=== PATIENT | male | born 1990 | race Caucasian/White ===

== ENCOUNTER 2017-10-28 12:10 | Inpatient (IN) | payer MEDICAID ==
[2017-10-28] MEDS ORDERED: Insulin Regular, Human 100 Units/ML 3 ML Vial IV ONE ×2 (13:09→13:45)
[2017-10-28] MEDS ORDERED: Sodium Chloride 0.9% 1,000 ML IV ONE ×3 (13:13→15:33)
[2017-10-28] MEDS: Sodium Chloride 0.9% 1,000 ML IV SCH ×2 (17:12→21:16)
--- NOTE | 2017-10-28 18:17 | PCM.HP ---
H&P History of Present Illness - General Date of Service: 10/28/17 Source of Information: Patient, Old Records History Limitations: Reports: No Limitations - History of Present Illness Initial Comments - Free Text/Narative: This is a 27-year-old male patient comes the ER with elevated blood sugar. A month ago he was in the hospital for severe alcohol abuse withdrawal and necrotizing pancreatitis and upper GI bleed. He was sent home on glipizide 5 mg a day hydrochlorothiazide 25 mg daily, Flexeril 10 mg a day, Coreg 25 mg twice a day, Norvasc 5 mg a day, calcium acetate . He was postictal and appointment coming up and had lab draw yesterday. His blood sugar was low and 59. Says a you days he started having a little blurred vision then yesterday he couldn't read on a [employer] box 6 feet away. He has polyphagia all the time but he denies polydipsia and polyuria. He has no nausea or vomiting. He does not check his blood sugar he was post to to see if he had diabetes in the future. Patient states he has not had any alcohol since he got out of the hospital. - Related Data Allergies/Adverse Reactions: Allergies Allergy/AdvReac Type Severity Reaction Status Date / Time No Known Allergies Allergy Verified 10/28/17 15:34 Home Medications: Home Meds Calcium Acetate [PhosLo] 667 mg PO TID 10/28/17 [History] Carvedilol 25 mg PO BID 10/28/17 [History] Cyclobenzaprine [Flexeril] 10 mg PO TID PRN 10/28/17 [History] Hydrochlorothiazide 25 mg PO DAILY 10/28/17 [History] Omeprazole Magnesium [Prilosec] 20 mg PO BID 10/28/17 [History] Sevelamer Carbonate [Renvela] 800 mg PO TID 10/28/17 [History] amLODIPine [Norvasc] 5 mg PO BID 10/28/17 [History] glipiZIDE [Glucotrol] 5 mg PO DAILY 10/28/17 [History] Past Medical History HEENT History: Reports: Other (See Below) Other HEENT History: states that he had a scar tissue damage at his let eye. Cardiovascular History: Reports: Other (See Below) Other Cardiovascular History: essential hypertension; circulatory shock Respiratory History: Reports: Other (See Below) Other Respiratory History: hx of acute respiratory failure. Gastrointestinal History: Reports: Other (See Below) Other Gastrointestinal History: abdominal compartment syndrome, acute upper and lower GI bleeding, necrotizing pancreatitis. Genitourinary History: Reports: Other (See Below) Other Genitourinary History: hx of acute kiddney injury. Musculoskeletal History: Reports: Other (See Below) Other Musculoskeletal History: Sciatica Psychiatric History: Reports: ADHD, Bipolar, Other (See Below) Other Psychiatric History: patient has hx of alcohol dependence, has bipolar I and II mixed and wit rapid cycling. Social & Family History - Family History Family Medical History: Noncontributory H&P Review of Systems - Review of Systems: Review Of Systems: See Below General: Reports: No Symptoms HEENT: Reports: No Symptoms Pulmonary: Reports: No Symptoms Cardiovascular: Reports: No Symptoms Gastrointestinal: Reports: No Symptoms Genitourinary: Reports: Other (polyuria otherwise denied) Skin: Reports: No Symptoms Psychiatric: Reports: No Symptoms Neurological: Reports: No Symptoms Hematologic/Lymphatic: Reports: No Symptoms Review of Systems Comment:: See history of present illness Exam - Exam Exam: See Below - Vital Signs Vital Signs: Last Vital Signs Temp 98.2 F 10/28/17 17:39 Pulse 102 H 10/28/17 17:39 Resp 22 H 10/28/17 17:39 BP 127/83 10/28/17 17:39 Pulse Ox 97 10/28/17 17:39 Weight: 172 lb 2.896 oz - Exam General: Alert, Oriented, Cooperative HEENT: PERRLA, Hearing Intact, Mucosa Moist & [place], Posterior Pharynx Clear Neck: Supple, Trachea Midline Lungs: Clear to Auscultation, Normal Respiratory Effort. No: Crackles, Rales, Rhonchi Cardiovascular: Regular Rate, Regular Rhythm. No: Tachycardia, Systolic Murmur GI/Abdominal Exam: Normal Bowel Sounds, Soft, Non-Tender, No Organomegaly, No Distention, No Abnormal Bruit, No Mass Extremities: Normal Inspection, Non-Tender, No Pedal Edema Skin: Warm, Dry, Intact Neurological: Normal Speech, Normal Tone Neuro Extensive - Mental Status: Alert, Oriented x3, Normal Mood/Affect, Normal Cognition, Memory Intact Neuro Extensive - Motor, Sensory, Reflexes: Normal Gait Psychiatric: Alert, Normal Affect, Normal Mood - Patient Data Lab Results Last 24 hrs: Laboratory Results - last 24 hr 10/28/17 10/28/17 10/28/17 Range/Units 13:40 13:40 15:00 WBC 5.6 (4.5-12.0) X10-3/uL RBC 3.93 L (4.30-5.75) x10(6)uL Hgb 11.3 L (11.5-15.5) g/dL Hct 33.7 (30.0-51.3) % MCV 85.9 (80-96) fL MCH 28.6 (27.7-33.6) pg MCHC 33.4 (32.2-35.4) g/dL RDW 14.2 (11.5-15.5) % Plt Count 241 (125-369) X10(3)uL MPV 10.4 (7.4-10.4) fL Neut % (Auto) 66.3 (46-82) % Lymph % (Auto) 22.3 (13-37) % [place] % (Auto) 7.2 (4-12) % Eos % (Auto) 3 (1.0-5.0) % Baso % (Auto) 1 (0-2) % Neut # (Auto) 3.7 (1.6-8.3) # Lymph # (Auto) 1.2 (0.6-5.0) # [place] # (Auto) 0.4 (0.0-1.3) # Eos # (Auto) 0.2 (0.0-0.8) # Baso # (Auto) 0.1 (0.0-0.2) # Sodium 118 L* 124 L (135-145) mmol/L Potassium 4.3 3.7 (3.5-5.3) mmol/L Chloride 83 L* 88 L* D (100-110) mmol/L Carbon Dioxide 27 26 (21-32) mmol/L BUN 20 H 19 H (7-18) mg/dL Creatinine 1.8 H 1.6 H (0.70-1.30) mg/dL Est Cr Clr Drug Dosing TNP TNP Estimated GFR (MDRD) 45 L 52 L (>60) BUN/Creatinine Ratio 11.1 11.9 (9-20) Glucose 1048 H* 802 H* D (80-116) mg/dL Calcium 9.1 9.0 (8.6-10.2) mg/dL Phosphorus 4.0 (2.6-4.6) mg/dL Magnesium 1.5 L (1.8-2.5) mg/dL Total Bilirubin 1.1 (0.1-1.3) mg/dL AST 17 (5-25) IU/L ALT 28 (12-36) U/L Alkaline Phosphatase 127 H (56-112) IU/L Total Protein 8.1 H (6.0-8.0) g/dL Albumin 3.6 (3.5-5.2) g/dL Globulin 4.5 g/dL Albumin/Globulin Ratio 0.8 Urine Color (YELLOW) Urine Appearance (CLEAR) Urine pH (5.0-6.5) Ur Specific [place] (1.010-1.025) Urine Protein (NEGATIVE) mg/dL Urine Glucose (UA) (NEGATIVE) mg/dL Urine Ketones (NEGATIVE) mg/dL Urine Occult Blood (NEGATIVE) Urine Nitrite (NEGATIVE) Urine Bilirubin (NEGATIVE) Urine Urobilinogen (NEGATIVE) mg/dL Ur Leukocyte Esterase (NEGATIVE) Urine RBC (0) Urine WBC (0) Ur Squamous Epith Cells (NS,R,O) Urine Bacteria (NS) Hyaline Casts (NS) Urine Opiates Screen (NEGATIVE) Ur Oxycodone Screen (NEGATIVE) Ur Propoxyphene Screen (NEGATIVE) Ur Barbituates Screen (NEGATIVE) Ur Tricyclics Screen (NEGATIVE) Ur Phencyclidine Scrn (NEGATIVE) Ur Amphetamine Screen (NEGATIVE) Urine MDMA Screen (NEGATIVE) U Benzodiazepines Scrn (NEGATIVE) U Cocaine Metab Screen (NEGATIVE) U Marijuana (THC) Screen (NEGATIVE) 10/28/17 10/28/17 10/28/17 Range/Units 15:29 15:29 16:18 WBC (4.5-12.0) X10-3/uL RBC (4.30-5.75) x10(6)uL Hgb (11.5-15.5) g/dL Hct (30.0-51.3) % MCV (80-96) fL MCH (27.7-33.6) pg MCHC (32.2-35.4) g/dL RDW (11.5-15.5) % Plt Count (125-369) X10(3)uL MPV (7.4-10.4) fL Neut % (Auto) (46-82) % Lymph % (Auto) (13-37) % [place] % (Auto) (4-12) % Eos % (Auto) (1.0-5.0) % Baso % (Auto) (0-2) % Neut # (Auto) (1.6-8.3) # Lymph # (Auto) (0.6-5.0) # [place] # (Auto) (0.0-1.3) # Eos # (Auto) (0.0-0.8) # Baso # (Auto) (0.0-0.2) # Sodium 129 L (135-145) mmol/L Potassium 3.5 (3.5-5.3) mmol/L Chloride 93 L D (100-110) mmol/L Carbon Dioxide 26 (21-32) mmol/L BUN 17 (7-18) mg/dL Creatinine 1.5 H (0.70-1.30) mg/dL Est Cr Clr Drug Dosing TNP Estimated GFR (MDRD) 56 L (>60) BUN/Creatinine Ratio 11.3 (9-20) Glucose 508 H* D (80-116) mg/dL Calcium 9.0 (8.6-10.2) mg/dL Phosphorus (2.6-4.6) mg/dL Magnesium (1.8-2.5) mg/dL Total Bilirubin (0.1-1.3) mg/dL AST (5-25) IU/L ALT (12-36) U/L Alkaline Phosphatase (56-112) IU/L Total Protein (6.0-8.0) g/dL Albumin (3.5-5.2) g/dL Globulin g/dL Albumin/Globulin Ratio Urine Color Yellow (YELLOW) Urine Appearance Clear (CLEAR) Urine pH 5.0 (5.0-6.5) Ur Specific [place] 1.005 L (1.010-1.025) Urine Protein Negative (NEGATIVE) mg/dL Urine Glucose (UA) >1000 H (NEGATIVE) mg/dL Urine Ketones Negative (NEGATIVE) mg/dL Urine Occult Blood Negative (NEGATIVE) Urine Nitrite Negative (NEGATIVE) Urine Bilirubin Negative (NEGATIVE) Urine Urobilinogen Normal (NEGATIVE) mg/dL Ur Leukocyte Esterase Negative (NEGATIVE) Urine RBC Not seen (0) Urine WBC 0-5 (0) Ur Squamous Epith Cells Few H (NS,R,O) Urine Bacteria Few H (NS) Hyaline Casts Few H (NS) Urine Opiates Screen Negative (NEGATIVE) Ur Oxycodone Screen Negative (NEGATIVE) Ur Propoxyphene Screen Negative (NEGATIVE) Ur Barbituates Screen Negative (NEGATIVE) Ur Tricyclics Screen Negative (NEGATIVE) Ur Phencyclidine Scrn Negative (NEGATIVE) Ur Amphetamine Screen Negative (NEGATIVE) Urine MDMA Screen Negative (NEGATIVE) U Benzodiazepines Scrn Negative (NEGATIVE) U Cocaine Metab Screen Negative (NEGATIVE) U Marijuana (THC) Screen Positive H (NEGATIVE) 10/28/17 Range/Units 17:20 WBC (4.5-12.0) X10-3/uL RBC (4.30-5.75) x10(6)uL Hgb (11.5-15.5) g/dL Hct (30.0-51.3) % MCV (80-96) fL MCH (27.7-33.6) pg MCHC (32.2-35.4) g/dL RDW (11.5-15.5) % Plt Count (125-369) X10(3)uL MPV (7.4-10.4) fL Neut % (Auto) (46-82) % Lymph % (Auto) (13-37) % [place] % (Auto) (4-12) % Eos % (Auto) (1.0-5.0) % Baso % (Auto) (0-2) % Neut # (Auto) (1.6-8.3) # Lymph # (Auto) (0.6-5.0) # [place] # (Auto) (0.0-1.3) # Eos # (Auto) (0.0-0.8) # Baso # (Auto) (0.0-0.2) # Sodium 132 L (135-145) mmol/L Potassium 3.4 L (3.5-5.3) mmol/L Chloride 94 L (100-110) mmol/L Carbon Dioxide 27 (21-32) mmol/L BUN 16 (7-18) mg/dL Creatinine 1.4 H (0.70-1.30) mg/dL Est Cr Clr Drug Dosing TNP Estimated GFR (MDRD) > 60 (>60) BUN/Creatinine Ratio 11.4 (9-20) Glucose 341 H D (80-116) mg/dL Calcium 9.5 (8.6-10.2) mg/dL Phosphorus (2.6-4.6) mg/dL Magnesium (1.8-2.5) mg/dL Total Bilirubin (0.1-1.3) mg/dL AST (5-25) IU/L ALT (12-36) U/L Alkaline Phosphatase (56-112) IU/L Total Protein (6.0-8.0) g/dL Albumin (3.5-5.2) g/dL Globulin g/dL Albumin/Globulin Ratio Urine Color (YELLOW) Urine Appearance (CLEAR) Urine pH (5.0-6.5) Ur Specific [place] (1.010-1.025) Urine Protein (NEGATIVE) mg/dL Urine Glucose (UA) (NEGATIVE) mg/dL Urine Ketones (NEGATIVE) mg/dL Urine Occult Blood (NEGATIVE) Urine Nitrite (NEGATIVE) Urine Bilirubin (NEGATIVE) Urine Urobilinogen (NEGATIVE) mg/dL Ur Leukocyte Esterase (NEGATIVE) Urine RBC (0) Urine WBC (0) Ur Squamous Epith Cells (NS,R,O) Urine Bacteria (NS) Hyaline Casts (NS) Urine Opiates Screen (NEGATIVE) Ur Oxycodone Screen (NEGATIVE) Ur Propoxyphene Screen (NEGATIVE) Ur Barbituates Screen (NEGATIVE) Ur Tricyclics Screen (NEGATIVE) Ur Phencyclidine Scrn (NEGATIVE) Ur Amphetamine Screen (NEGATIVE) Urine MDMA Screen (NEGATIVE) U Benzodiazepines Scrn (NEGATIVE) U Cocaine Metab Screen (NEGATIVE) U Marijuana (THC) Screen (NEGATIVE) Result Diagrams: 10/28/17 13:40 10/28/17 17:20 - Problem List (1) Diabetic ketoacidosis SNOMED Code(s): 932062368, 752611771 ICD Code: E13.10 - OTH DIABETES MELLITUS WITH KETOACIDOSIS WITHOUT COMA Status: Acute Current Visit: Yes Qualifiers: Diabetes mellitus complication detail: without coma Problem List Initiated/Reviewed/Updated: Yes Orders Last 24hrs: Active Orders 24 hr Category Date Time Status Diabetes Education [RC] Click to Edit Care 10/28/17 13:45 Active Diabetes Education [RC] Click to Edit Care 10/28/17 15:06 Active Vital Signs [RC] Q1H Care 10/28/17 13:09 Active Vital Signs [RC] Q1H Care 10/28/17 13:45 Active DRUG SCREEN, URINE ALERE [URCHEM] Urgent Lab 10/28/17 15:29 Ordered UA W/MICROSCOPIC [URIN] Urgent Lab 10/28/17 15:29 Ordered Insulin Regular, Human [HumuLIN R] 100 unit Med 10/28/17 13:45 Active Sodium Chloride 0.9% [Normal Saline] 99 ml IV TITRATE Sodium Chloride 0.9% [Normal Saline] 1,000 ml Med 10/28/17 17:00 Active IV ASDIRECTED Medication Orders Insulin Human Regular 100 unit (/ Sodium Chloride) 100 mls @ 7.81 mls/hr IV TITRATE JOÃO; Protocol Last Admin: 10/28/17 13:59 Dose: 0.1 units/kg/hr, 7.81 mls/hr Sodium Chloride (Normal Saline) 1,000 mls @ 250 mls/hr IV ASDIRECTED JOÃO Last Admin: 10/28/17 17:12 Dose: 250 mls/hr Assessment/Plan Comment:: 1. Admit to ICU for insulin IV protocol. 2. Frequent checks of potassium 3. When the sugars come down start a diabetic diet 4.In the a.m. consider diabetes education. 5. Up ad colette. 6. SCD
[2017-10-28] MEDS: Potassium Chloride 10% 20 MEQ/15 ML Soln 15 ML UD Cup PO SCH ×3 (20:32→21:30)
[2017-10-28] MEDS ORDERED: Cyclobenzaprine 10 MG Tab PO PRN (20:41)
[2017-10-28] MEDS ORDERED: amLODIPine 2.5 MG Tab PO SCH (21:00)
[2017-10-28] MEDS ORDERED: Calcium Acetate 667 MG Cap PO SCH (21:00)
[2017-10-28] MEDS ORDERED: Sevelamer Carbonate 800 MG Tab PO SCH (21:00)
[2017-10-28] MEDS ORDERED: amLODIPine 5 MG Tab ONE (21:11)
[2017-10-28] MEDS: Carvedilol 25 MG Tab PO SCH (21:14)
[2017-10-29] MEDS ORDERED: Insulin Detemir 100 Units/ML 3 ML Pen SUBCUT ONE (00:47)
[2017-10-29] MEDS ORDERED: Insulin Aspart 100 Units/ML 3 ML Pen SUBCUT ONE ×2 (01:00→11:17)
[2017-10-29] MEDS: Sodium Chloride 0.9% 1,000 ML IV SCH (07:19)
[2017-10-29] MEDS ORDERED: Pantoprazole 40 MG Tab.CR PO SCH (07:30)
[2017-10-29] MEDS: Sevelamer Carbonate 800 MG Tab PO SCH ×2 (08:53→13:08)
[2017-10-29] MEDS: Calcium Acetate 667 MG Cap PO SCH ×2 (08:53→13:08)
[2017-10-29] MEDS: Carvedilol 25 MG Tab PO SCH (08:54)
--- NOTE | 2017-10-29 08:54 | PCM.PN ---
- General Info Date of Service: 10/29/17 Subjective Update: Chacorta was admitted yesterday because of hyperglycemia and presumably DKA. Overnight to go insulin drip and fluids and he feels better this morning he denies chest pain shortness of breath fever nausea vomiting. Complains of fuzzy vision that has been going on for. 3-4 days. Last week he was admitted and discharged with acute kidney injury.Repeat labs showed glucose of >1100, necessitating his admission. - Review of Systems General: Reports: No Symptoms HEENT: Reports: No Symptoms Pulmonary: Reports: No Symptoms Cardiovascular: Reports: No Symptoms - Patient Data Vitals - Most Recent: Last Vital Signs Temp 97.9 F 10/29/17 07:22 Pulse 97 10/29/17 07:22 Resp 18 10/29/17 07:22 BP 136/84 10/29/17 07:22 Pulse Ox 100 10/29/17 07:22 Weight - Most Recent: 78.1 kg I&O - Last 24 Hours: Intake & Output 10/28/17 10/29/17 10/29/17 22:59 06:59 14:59 Intake Total 3786 1118 Output Total 800 2125 Balance 2986 -1007 Lab Results Last 24 Hours: Laboratory Results - last 24 hr 10/28/17 10/28/17 10/28/17 Range/Units 13:40 13:40 15:00 WBC 5.6 (4.5-12.0) X10-3/uL RBC 3.93 L (4.30-5.75) x10(6)uL Hgb 11.3 L (11.5-15.5) g/dL Hct 33.7 (30.0-51.3) % MCV 85.9 (80-96) fL MCH 28.6 (27.7-33.6) pg MCHC 33.4 (32.2-35.4) g/dL RDW 14.2 (11.5-15.5) % Plt Count 241 (125-369) X10(3)uL MPV 10.4 (7.4-10.4) fL Neut % (Auto) 66.3 (46-82) % Lymph % (Auto) 22.3 (13-37) % Anson % (Auto) 7.2 (4-12) % Eos % (Auto) 3 (1.0-5.0) % Baso % (Auto) 1 (0-2) % Neut # (Auto) 3.7 (1.6-8.3) # Lymph # (Auto) 1.2 (0.6-5.0) # Anson # (Auto) 0.4 (0.0-1.3) # Eos # (Auto) 0.2 (0.0-0.8) # Baso # (Auto) 0.1 (0.0-0.2) # Sodium 118 L* 124 L (135-145) mmol/L Potassium 4.3 3.7 (3.5-5.3) mmol/L Chloride 83 L* 88 L* D (100-110) mmol/L Carbon Dioxide 27 26 (21-32) mmol/L BUN 20 H 19 H (7-18) mg/dL Creatinine 1.8 H 1.6 H (0.70-1.30) mg/dL Est Cr Clr Drug Dosing TNP TNP Estimated GFR (MDRD) 45 L 52 L (>60) BUN/Creatinine Ratio 11.1 11.9 (9-20) Glucose 1048 H* 802 H* D (80-116) mg/dL POC Glucose (80-116) mg/dL Calcium 9.1 9.0 (8.6-10.2) mg/dL Phosphorus 4.0 (2.6-4.6) mg/dL Magnesium 1.5 L (1.8-2.5) mg/dL Total Bilirubin 1.1 (0.1-1.3) mg/dL AST 17 (5-25) IU/L ALT 28 (12-36) U/L Alkaline Phosphatase 127 H (56-112) IU/L Total Protein 8.1 H (6.0-8.0) g/dL Albumin 3.6 (3.5-5.2) g/dL Globulin 4.5 g/dL Albumin/Globulin Ratio 0.8 Urine Color (YELLOW) Urine Appearance (CLEAR) Urine pH (5.0-6.5) Ur Specific Sayre (1.010-1.025) Urine Protein (NEGATIVE) mg/dL Urine Glucose (UA) (NEGATIVE) mg/dL Urine Ketones (NEGATIVE) mg/dL Urine Occult Blood (NEGATIVE) Urine Nitrite (NEGATIVE) Urine Bilirubin (NEGATIVE) Urine Urobilinogen (NEGATIVE) mg/dL Ur Leukocyte Esterase (NEGATIVE) Urine RBC (0) Urine WBC (0) Ur Squamous Epith Cells (NS,R,O) Urine Bacteria (NS) Hyaline Casts (NS) Urine Opiates Screen (NEGATIVE) Ur Oxycodone Screen (NEGATIVE) Ur Propoxyphene Screen (NEGATIVE) Ur Barbituates Screen (NEGATIVE) Ur Tricyclics Screen (NEGATIVE) Ur Phencyclidine Scrn (NEGATIVE) Ur Amphetamine Screen (NEGATIVE) Urine MDMA Screen (NEGATIVE) U Benzodiazepines Scrn (NEGATIVE) U Cocaine Metab Screen (NEGATIVE) U Marijuana (THC) Screen (NEGATIVE) 10/28/17 10/28/17 10/28/17 Range/Units 15:29 15:29 16:18 WBC (4.5-12.0) X10-3/uL RBC (4.30-5.75) x10(6)uL Hgb (11.5-15.5) g/dL Hct (30.0-51.3) % MCV (80-96) fL MCH (27.7-33.6) pg MCHC (32.2-35.4) g/dL RDW (11.5-15.5) % Plt Count (125-369) X10(3)uL MPV (7.4-10.4) fL Neut % (Auto) (46-82) % Lymph % (Auto) (13-37) % Anson % (Auto) (4-12) % Eos % (Auto) (1.0-5.0) % Baso % (Auto) (0-2) % Neut # (Auto) (1.6-8.3) # Lymph # (Auto) (0.6-5.0) # Anson # (Auto) (0.0-1.3) # Eos # (Auto) (0.0-0.8) # Baso # (Auto) (0.0-0.2) # Sodium 129 L (135-145) mmol/L Potassium 3.5 (3.5-5.3) mmol/L Chloride 93 L D (100-110) mmol/L Carbon Dioxide 26 (21-32) mmol/L BUN 17 (7-18) mg/dL Creatinine 1.5 H (0.70-1.30) mg/dL Est Cr Clr Drug Dosing TNP Estimated GFR (MDRD) 56 L (>60) BUN/Creatinine Ratio 11.3 (9-20) Glucose 508 H* D (80-116) mg/dL POC Glucose (80-116) mg/dL Calcium 9.0 (8.6-10.2) mg/dL Phosphorus (2.6-4.6) mg/dL Magnesium (1.8-2.5) mg/dL Total Bilirubin (0.1-1.3) mg/dL AST (5-25) IU/L ALT (12-36) U/L Alkaline Phosphatase (56-112) IU/L Total Protein (6.0-8.0) g/dL Albumin (3.5-5.2) g/dL Globulin g/dL Albumin/Globulin Ratio Urine Color Yellow (YELLOW) Urine Appearance Clear (CLEAR) Urine pH 5.0 (5.0-6.5) Ur Specific [place]re 1.005 L (1.010-1.025) Urine Protein Negative (NEGATIVE) mg/dL Urine Glucose (UA) >1000 H (NEGATIVE) mg/dL Urine Ketones Negative (NEGATIVE) mg/dL Urine Occult Blood Negative (NEGATIVE) Urine Nitrite Negative (NEGATIVE) Urine Bilirubin Negative (NEGATIVE) Urine Urobilinogen Normal (NEGATIVE) mg/dL Ur Leukocyte Esterase Negative (NEGATIVE) Urine RBC Not seen (0) Urine WBC 0-5 (0) Ur Squamous Epith Cells Few H (NS,R,O) Urine Bacteria Few H (NS) Hyaline Casts Few H (NS) Urine Opiates Screen Negative (NEGATIVE) Ur Oxycodone Screen Negative (NEGATIVE) Ur Propoxyphene Screen Negative (NEGATIVE) Ur Barbituates Screen Negative (NEGATIVE) Ur Tricyclics Screen Negative (NEGATIVE) Ur Phencyclidine Scrn Negative (NEGATIVE) Ur Amphetamine Screen Negative (NEGATIVE) Urine MDMA Screen Negative (NEGATIVE) U Benzodiazepines Scrn Negative (NEGATIVE) U Cocaine Metab Screen Negative (NEGATIVE) U Marijuana (THC) Screen Positive H (NEGATIVE) 10/28/17 10/28/17 10/28/17 Range/Units 17:20 18:35 18:35 WBC (4.5-12.0) X10-3/uL RBC (4.30-5.75) x10(6)uL Hgb (11.5-15.5) g/dL Hct (30.0-51.3) % MCV (80-96) fL MCH (27.7-33.6) pg MCHC (32.2-35.4) g/dL RDW (11.5-15.5) % Plt Count (125-369) X10(3)uL MPV (7.4-10.4) fL Neut % (Auto) (46-82) % Lymph % (Auto) (13-37) % Anson % (Auto) (4-12) % Eos % (Auto) (1.0-5.0) % Baso % (Auto) (0-2) % Neut # (Auto) (1.6-8.3) # Lymph # (Auto) (0.6-5.0) # Anson # (Auto) (0.0-1.3) # Eos # (Auto) (0.0-0.8) # Baso # (Auto) (0.0-0.2) # Sodium 132 L 135 (135-145) mmol/L Potassium 3.4 L 3.0 L (3.5-5.3) mmol/L Chloride 94 L 98 L (100-110) mmol/L Carbon Dioxide 27 28 (21-32) mmol/L BUN 16 16 (7-18) mg/dL Creatinine 1.4 H 1.2 (0.70-1.30) mg/dL Est Cr Clr Drug Dosing TNP 101.24 Estimated GFR (MDRD) > 60 > 60 (>60) BUN/Creatinine Ratio 11.4 13.3 (9-20) Glucose 341 H D 157 H D (80-116) mg/dL POC Glucose (80-116) mg/dL Calcium 9.5 9.1 (8.6-10.2) mg/dL Phosphorus 3.5 (2.6-4.6) mg/dL Magnesium 1.4 L (1.8-2.5) mg/dL Total Bilirubin (0.1-1.3) mg/dL AST (5-25) IU/L ALT (12-36) U/L Alkaline Phosphatase (56-112) IU/L Total Protein (6.0-8.0) g/dL Albumin (3.5-5.2) g/dL Globulin g/dL Albumin/Globulin Ratio Urine Color (YELLOW) Urine Appearance (CLEAR) Urine pH (5.0-6.5) Ur Specific Sayre (1.010-1.025) Urine Protein (NEGATIVE) mg/dL Urine Glucose (UA) (NEGATIVE) mg/dL Urine Ketones (NEGATIVE) mg/dL Urine Occult Blood (NEGATIVE) Urine Nitrite (NEGATIVE) Urine Bilirubin (NEGATIVE) Urine Urobilinogen (NEGATIVE) mg/dL Ur Leukocyte Esterase (NEGATIVE) Urine RBC (0) Urine WBC (0) Ur Squamous Epith Cells (NS,R,O) Urine Bacteria (NS) Hyaline Casts (NS) Urine Opiates Screen (NEGATIVE) Ur Oxycodone Screen (NEGATIVE) Ur Propoxyphene Screen (NEGATIVE) Ur Barbituates Screen (NEGATIVE) Ur Tricyclics Screen (NEGATIVE) Ur Phencyclidine Scrn (NEGATIVE) Ur Amphetamine Screen (NEGATIVE) Urine MDMA Screen (NEGATIVE) U Benzodiazepines Scrn (NEGATIVE) U Cocaine Metab Screen (NEGATIVE) U Marijuana (THC) Screen (NEGATIVE) 10/29/17 10/29/17 10/29/17 Range/Units 00:08 02:13 03:16 WBC (4.5-12.0) X10-3/uL RBC (4.30-5.75) x10(6)uL Hgb (11.5-15.5) g/dL Hct (30.0-51.3) % MCV (80-96) fL MCH (27.7-33.6) pg MCHC (32.2-35.4) g/dL RDW (11.5-15.5) % Plt Count (125-369) X10(3)uL MPV (7.4-10.4) fL Neut % (Auto) (46-82) % Lymph % (Auto) (13-37) % Anson % (Auto) (4-12) % Eos % (Auto) (1.0-5.0) % Baso % (Auto) (0-2) % Neut # (Auto) (1.6-8.3) # Lymph # (Auto) (0.6-5.0) # Anson # (Auto) (0.0-1.3) # Eos # (Auto) (0.0-0.8) # Baso # (Auto) (0.0-0.2) # Sodium 133 L (135-145) mmol/L Potassium 4.7 D (3.5-5.3) mmol/L Chloride 99 L (100-110) mmol/L Carbon Dioxide 26 (21-32) mmol/L BUN 13 (7-18) mg/dL Creatinine 1.2 (0.70-1.30) mg/dL Est Cr Clr Drug Dosing 101.24 Estimated GFR (MDRD) > 60 (>60) BUN/Creatinine Ratio 10.8 (9-20) Glucose 413 H* D (80-116) mg/dL POC Glucose 376 H 305 H (80-116) mg/dL Calcium 9.0 (8.6-10.2) mg/dL Phosphorus (2.6-4.6) mg/dL Magnesium (1.8-2.5) mg/dL Total Bilirubin (0.1-1.3) mg/dL AST (5-25) IU/L ALT (12-36) U/L Alkaline Phosphatase (56-112) IU/L Total Protein (6.0-8.0) g/dL Albumin (3.5-5.2) g/dL Globulin g/dL Albumin/Globulin Ratio Urine Color (YELLOW) Urine Appearance (CLEAR) Urine pH (5.0-6.5) Ur Specific Sayre (1.010-1.025) Urine Protein (NEGATIVE) mg/dL Urine Glucose (UA) (NEGATIVE) mg/dL Urine Ketones (NEGATIVE) mg/dL Urine Occult Blood (NEGATIVE) Urine Nitrite (NEGATIVE) Urine Bilirubin (NEGATIVE) Urine Urobilinogen (NEGATIVE) mg/dL Ur Leukocyte Esterase (NEGATIVE) Urine RBC (0) Urine WBC (0) Ur Squamous Epith Cells (NS,R,O) Urine Bacteria (NS) Hyaline Casts (NS) Urine Opiates Screen (NEGATIVE) Ur Oxycodone Screen (NEGATIVE) Ur Propoxyphene Screen (NEGATIVE) Ur Barbituates Screen (NEGATIVE) Ur Tricyclics Screen (NEGATIVE) Ur Phencyclidine Scrn (NEGATIVE) Ur Amphetamine Screen (NEGATIVE) Urine MDMA Screen (NEGATIVE) U Benzodiazepines Scrn (NEGATIVE) U Cocaine Metab Screen (NEGATIVE) U Marijuana (THC) Screen (NEGATIVE) 10/29/17 Range/Units 06:15 WBC (4.5-12.0) X10-3/uL RBC (4.30-5.75) x10(6)uL Hgb (11.5-15.5) g/dL Hct (30.0-51.3) % MCV (80-96) fL MCH (27.7-33.6) pg MCHC (32.2-35.4) g/dL RDW (11.5-15.5) % Plt Count (125-369) X10(3)uL MPV (7.4-10.4) fL Neut % (Auto) (46-82) % Lymph % (Auto) (13-37) % Anson % (Auto) (4-12) % Eos % (Auto) (1.0-5.0) % Baso % (Auto) (0-2) % Neut # (Auto) (1.6-8.3) # Lymph # (Auto) (0.6-5.0) # Anson # (Auto) (0.0-1.3) # Eos # (Auto) (0.0-0.8) # Baso # (Auto) (0.0-0.2) # Sodium 137 (135-145) mmol/L Potassium 3.6 D (3.5-5.3) mmol/L Chloride 101 (100-110) mmol/L Carbon Dioxide 27 (21-32) mmol/L BUN 11 (7-18) mg/dL Creatinine 1.1 (0.70-1.30) mg/dL Est Cr Clr Drug Dosing 110.44 Estimated GFR (MDRD) > 60 (>60) BUN/Creatinine Ratio 10.0 (9-20) Glucose 250 H D (80-116) mg/dL POC Glucose (80-116) mg/dL Calcium 9.5 (8.6-10.2) mg/dL Phosphorus (2.6-4.6) mg/dL Magnesium (1.8-2.5) mg/dL Total Bilirubin (0.1-1.3) mg/dL AST (5-25) IU/L ALT (12-36) U/L Alkaline Phosphatase (56-112) IU/L Total Protein (6.0-8.0) g/dL Albumin (3.5-5.2) g/dL Globulin g/dL Albumin/Globulin Ratio Urine Color (YELLOW) Urine Appearance (CLEAR) Urine pH (5.0-6.5) Ur Specific Sayre (1.010-1.025) Urine Protein (NEGATIVE) mg/dL Urine Glucose (UA) (NEGATIVE) mg/dL Urine Ketones (NEGATIVE) mg/dL Urine Occult Blood (NEGATIVE) Urine Nitrite (NEGATIVE) Urine Bilirubin (NEGATIVE) Urine Urobilinogen (NEGATIVE) mg/dL Ur Leukocyte Esterase (NEGATIVE) Urine RBC (0) Urine WBC (0) Ur Squamous Epith Cells (NS,R,O) Urine Bacteria (NS) Hyaline Casts (NS) Urine Opiates Screen (NEGATIVE) Ur Oxycodone Screen (NEGATIVE) Ur Propoxyphene Screen (NEGATIVE) Ur Barbituates Screen (NEGATIVE) Ur Tricyclics Screen (NEGATIVE) Ur Phencyclidine Scrn (NEGATIVE) Ur Amphetamine Screen (NEGATIVE) Urine MDMA Screen (NEGATIVE) U Benzodiazepines Scrn (NEGATIVE) U Cocaine Metab Screen (NEGATIVE) U Marijuana (THC) Screen (NEGATIVE) Med Orders - Current: Current Medications Amlodipine Besylate (Norvasc) 5 mg PO BID [facility] Calcium Acetate (Phoslo) 667 mg PO TIDMEALS [facility] Carvedilol (Coreg) 25 mg PO BID [facility] Last Admin: 10/28/17 21:14 Dose: 25 mg Cyclobenzaprine HCl (Flexeril) 10 mg PO TID PRN PRN Reason: Muscle Spasm Glipizide (Glucotrol) 5 mg PO DAILY [facility] Last Admin: 10/29/17 08:12 Dose: 5 mg Hydrochlorothiazide (Hydrochlorothiazide) 25 mg PO DAILY [facility] Sodium Chloride (Normal Saline) 1,000 mls @ 100 mls/hr IV ASDIRECTED [facility] Last Admin: 10/29/17 07:19 Dose: 250 mls/hr Pantoprazole Sodium (Protonix) 40 mg PO BIDAC [facility] Last Admin: 10/29/17 08:13 Dose: 40 mg Sevelamer Carbonate (Renvela) 800 mg PO TIDMEALS [facility] Discontinued Medications Amlodipine Besylate (Norvasc) 5 mg PO BID [facility] Last Admin: 10/28/17 21:25 Dose: 5 mg Amlodipine Besylate (Norvasc) Confirm Administered Dose 5 mg .ROUTE .STK-MED ONE Stop: 10/28/17 21:12 Last Admin: 10/28/17 21:17 Dose: 5 mg Calcium Acetate (Phoslo) 667 mg PO TID [facility] Last Admin: 10/28/17 21:34 Dose: 667 mg Sodium Chloride (Normal Saline) 1,000 mls @ 999 mls/hr IV .BOLUS ONE Stop: 10/28/17 14:13 Last Admin: 10/28/17 13:25 Dose: 999 mls/hr Insulin Human Regular 100 unit (/ Sodium Chloride) 100 mls @ 7.81 mls/hr IV TITRATE JOÃO; Protocol Last Titration: 10/28/17 18:19 Dose: 0.07 units/kg/hr, 5.8 mls/hr Sodium Chloride (Normal Saline) 1,000 mls @ 999 mls/hr IV .BOLUS ONE Stop: 10/28/17 16:04 Last Admin: 10/28/17 14:26 Dose: 999 mls/hr Sodium Chloride (Normal Saline) 1,000 mls @ 999 mls/hr IV .BOLUS ONE Stop: 10/28/17 16:33 Last Admin: 10/28/17 15:27 Dose: 999 mls/hr Insulin Aspart (Novolog) 10 unit SUBCUT ONETIME ONE Stop: 10/29/17 01:01 Last Admin: 10/29/17 01:07 Dose: 10 units Insulin Detemir (Levemir) 40 unit SUBCUT ONETIME ONE Stop: 10/29/17 00:48 Last Admin: 10/29/17 01:05 Dose: 40 units Insulin Human Regular (Humulin R) 7.8 unit IV ONETIME ONE Stop: 10/28/17 13:46 Last Admin: 10/28/17 13:57 Dose: 7.8 units Potassium Chloride (Potassium Chloride Solution) 40 meq PO Q30M JOÃO Stop: 10/28/17 21:16 Last Admin: 10/28/17 21:30 Dose: 40 meq Sevelamer Carbonate (Renvela) 800 mg PO TID JOÃO Last Admin: 10/28/17 21:34 Dose: 800 mg - Exam General: Alert, Oriented, Cooperative, No Acute Distress HEENT: Pupils Equal, Pupils Reactive, EOMI, Mucous Membr. Moist/[place] Neck: Supple Lungs: Clear to Auscultation, Normal Respiratory Effort Cardiovascular: Regular Rate, Regular Rhythm Psy/Mental Status: Alert, Normal Affect, Normal Mood - Problem List & Annotations (1) Hyperglycemic crisis in diabetes mellitus SNOMED Code(s): 131643857, 683980371 Code(s): E11.65 - TYPE 2 DIABETES MELLITUS WITH HYPERGLYCEMIA Status: Acute Current Visit: Yes (2) Hypomagnesemia SNOMED Code(s): 857081635 Code(s): E83.42 - HYPOMAGNESEMIA Status: Acute Current Visit: Yes (3) H/O alcohol abuse SNOMED Code(s): 142759623 Code(s): Z87.898 - PERSONAL HISTORY OF OTHER SPECIFIED CONDITIONS Status: Acute Current Visit: Yes (4) Marijuana abuse SNOMED Code(s): 68161547 Code(s): F12.10 - CANNABIS ABUSE, UNCOMPLICATED Status: Acute Current Visit: Yes (5) HTN (hypertension) SNOMED Code(s): 85967245 Code(s): I10 - ESSENTIAL (PRIMARY) HYPERTENSION Status: Acute Current Visit: Yes Qualifiers: Hypertension type: essential hypertension Qualified Code(s): I10 - Essential (primary) hypertension (6) Hyponatremia SNOMED Code(s): 39240781 Code(s): E87.1 - HYPO-OSMOLALITY AND HYPONATREMIA Status: Acute Current Visit: Yes (7) H/O renal failure SNOMED Code(s): 509055144, 229555207 Code(s): Z87.448 - PERSONAL HISTORY OF OTHER DISEASES OF URINARY SYSTEM Status: Acute Current Visit: Yes - Problem List Review Problem List Initiated/Reviewed/Updated: Yes - My Orders Last 24 Hours: My Active Orders 10/29/17 Breakfast Consistent Carbohydrate Diet [DIET] - Plan Plan:: His A1c was 5.9 a month ago, interestingly. His diabetes meliitus, seems to be new and its unclear whether this type I or type II. In any case he feels better this morning and sugars are below 250. My plan is to discharge him home on insulin. His anion gap was 18 an admission down to 11, bicarbonate is improved, and there were no ketones in the urine. No blood gas was performed on admission I'm unable to make a clear diagnosis of DKA. I will have him make an appointment with a primary care physician to direct his diabetes care
[2017-10-29] MEDS ORDERED: Hydrochlorothiazide 25 MG Tab PO SCH (09:00)
[2017-10-29] MEDS ORDERED: amLODIPine 5 MG Tab PO SCH (09:00)
[2017-10-29] MEDS ORDERED: glipiZIDE 5 MG Tab PO SCH (09:00)
--- NOTE | 2017-10-29 10:15 | DISCH ---
DISCHARGE DATE: 10/29/2017 REASON FOR ADMISSION: DKA, hyponatremia, hypomagnesemia, renal failure syndrome, mild anemia. DISCHARGE DIAGNOSES: 1. Hyperglycemia without diagnosis of diabetic ketoacidosis. 2. New onset diabetes mellitus, unclear whether it is type 1 or type 2. 3. History of alcohol abuse. 4. Hypomagnesemia. 5. Hyponatremia. 6. Renal failure syndrome. BRIEF HISTORY: This is a 27-year-old male who was admitted last night because of a high sugar. He had labs at the clinic and was called and informed that sugars were high, more than 1100. He was admitted here with a sugar of 802, chloride of 88, sodium 124, with a high anion gap. He was given IV fluids, and insulin and his sugars improved steadily with a sugar of 250 this morning. Normal creatinine and electrolytes. I checked up his chart and noticed he was admitted last week to [facility] for acute kidney injury thought to be due to ATN. He was discharged on glyburide. I intend to discharge him today on Lantus or any long-acting insulin 20 units at night and short-acting sliding scale of insulin and I have advised him to make an appointment with the PCP on Thursday. He has no primary care physician at this point. I encouraged him to quit glyburide at this time. We will continue with amlodipine, calcium, carvedilol, and stop the hydrochlorothiazide. He will start taking magnesium oxide 400 mg 4 times a day. Please note I spent more than 35 minutes in the discharge of this patient. /[id number] AMAURY/MULU
[2017-10-29] MEDS ORDERED: Insulin Aspart 100 Units/ML 3 ML Pen SUBCUT SCH (12:00)
--- NOTE | 2017-10-29 16:26 | ER ---
DATE SEEN: 10/28/2017 TIME SEEN: The patient was seen at 1245. HISTORY OF PRESENT ILLNESS: Chacrota is a 27-year-old who is being followed by engagement liaison after experiencing acute kidney injury secondary to complication of diabetes and pancreatitis. He had had pancreatitis and more recently within the last month has had a partial pancreatectomy and he was hospitalized and followed by [facility]. He had alcoholic pancreatitis. He had the acute injury secondary to the alcoholic pancreatitis and alcohol abuse. He has been on dialysis for a month, Thursday, , and Saturdays, and dialysis was stopped recently, and he had the test performed yesterday that came back to engagement liaison today, Dr. Itzel Potter, who noted that he had a 1025 glucose. Thus, he was advised to come to the emergency room for further therapeutic intervention. The patient denies fever, chills, cough, sore throat, chest pain, abdominal pain, back pain, arm pain, jaw pain, neck pain, leg pain, but he notes he has mild lightheadedness and chills and he has had polyuria and polydipsia. CURRENT MEDICATIONS: 1. Hydrochlorothiazide 25 mg daily. 2. Flexeril 10 mg t.i.d. 3. Ferrlecit 12.5 mg/mL, 0-125 mg IV one time a week (IV iron). 4. Aranesp (darbepoetin westley) injected subcu once a week. 5. Carvedilol 25 mg daily. 6. Amlodipine 5 mg daily. 7. Calcium acetate 667 mg daily. 8. Sevelamer carbonate (Renvela) 800 mg t.i.d. 9. Omeprazole 20 mg daily. 10.Glipizide 5 mg daily, 1/2 tablet daily by mouth, breakfast. He has been followed by the engagement liaison in [place], Itzel Potter M.D. Also, he has had history of abdominal compartment syndrome from alcohol. Other diagnosis: Acute lower abdominal GI bleed, respiratory failure, upper GI bleed, acute kidney injury, alcohol dependence, bipolar disorder 1, bipolar disorder 2 with cycling, essential hypertension, necrotizing pancreatitis, sciatica, and shock. PHYSICAL EXAMINATION: VITAL SIGNS: Blood pressure 123/86, heart rate 98, respirations 17, oxygen saturation 98%, temperature 36.6 degrees centigrade. GENERAL: The patient is alert. HEENT: His mouth is slightly dry. PERRLA intact. Slightly angular facial features. LUNGS: Clear without rales, rhonchi, or wheezes. HEART: S1, S2. No irregular rate or rhythm. No murmur. ABDOMEN: Soft. No guarding or rebound. Mild increased bowel sounds. Mild increased tympany. No CVA percussion tenderness. GENITALIA: Negative. LOWER EXTREMITIES: Without abnormality. Deep tendon reflexes hypoactive, upper and lower extremities. Sensory intact to lower extremities. LABORATORY FINDINGS: White count 5600, PMNs 66, lymphocytes 22, hemoglobin 11.3, platelets normal at 241,000. The patient has pseudohyponatremia with a sodium laboratory test of 124 (has glucose 804 which with recalculation resulted in a sodium of 138) so sodium of 124 is a pseudohyponatremia. Potassium 3.7, chloride 88, BUN 19, creatinine 1.9. GFR 52. BUN and creatinine ratio is 11. Glucose 802 and the previous 1059 has come down after having had insulin. Alkaline phosphatase 127, protein 8.1. Urinalysis greater than 1000 glucose, few squamous, few bacteria, few hyaline casts. Positive for marijuana on drug screen. ASSESSMENT: Hyperglycemia, etiology indeterminate. Was up at a 1059 per the history report of the physician, engagement liaison, who sent the patient to the ER. After he had been seen in the emergency room and started insulin, went down to 802. DIAGNOSES: 1. Hyperosmotic hyperglycemia. There are no ketones in the urine, so it is nonketotic hyperosmotic hyperglycemia. 2. The patient has pseudohyponatremia secondary to hyperglycemia. 3. Status post partial pancreatectomy. 4. Etiology for sudden rise of glucose is indeterminate. 5. Marijuana use and abuse. 6. Obvious side effect to the patient's recent hospitalization in which his cardiovascular medications with fair hemoglobin response to erythropoietin and IV iron injections. The patient is admitted, status discussed with Dr. Mccloud. The patient will be followed in ICU. The patient was placed on aggressive insulin IV drip, 0.1 per kg plus bolus, followed by 0.1 kg per hour. Hourly BMPs to be followed. The potassium is stable at present and ranges are within the orders for potassium supplementation, and will be closely followed. /[id number] SASHA/MULU MTDD
[2017-10-29] MEDS ORDERED: Insulin Detemir 100 Units/ML 3 ML Pen SUBCUT SCH (21:00)
== END 2017-10-29 11:45 | disposition home or self-care (01) | DRG 638 ==
LOC: FB.ED 12:10 → FB.ICU 17:22
PROVIDERS: ADMIT Emergency Medicine; ATTEND Family Medicine
DX: E13.65 Other specified diabetes mellitus with hyperglycemia (principal); E72.51 Non-ketotic hyperglycinemia; E87.1 Hypo-osmolality and hyponatremia; F31.81 Bipolar II disorder; F12.10 Cannabis abuse, uncomplicated; R63.2 Polyphagia; E83.42 Hypomagnesemia; Z87.448 Personal history of other diseases of urinary system; F10.21 Alcohol dependence, in remission; I12.9 Hypertensive chronic kidney disease with stage 1 through stage 4 chronic kidney disease, or unspecified chronic kidney disease; E13.22 Other specified diabetes mellitus with diabetic chronic kidney disease; N18.9 Chronic kidney disease, unspecified; Z79.4 Long term (current) use of insulin
CPT/HCPCS: 36415; 80048; 80053; 80305; 81001; 82962; 83735; 84100; 85025; 96361; 96374; 99285; A9270-GY; J1815; J7030; J7040

== ENCOUNTER 2020-09-28 09:48 | Emergency (ER) | payer SELFPAY ==
[2020-09-28] MEDS ORDERED: Sodium Chloride 0.9% 10 ML Syringe FLUSH PRN (11:47)
[2020-09-28] MEDS ORDERED: Morphine 2 MG/ML SYRINGE IVPUSH ONE (11:48)
[2020-09-28] MEDS ORDERED: Ondansetron 4 MG/2 ML SDV IVPUSH STA (11:48)
[2020-09-28] MEDS ORDERED: Sodium Chloride 0.9% 1,000 ML IV SCH (12:00)
[2020-09-28] MEDS ORDERED: Iopamidol 755 Mg/ML 100 ML Bottle IV ONE (12:44)
--- NOTE | 2020-09-28 14:41 | EDM.PDOC ---
ED HPI GENERAL MEDICAL PROBLEM - General Chief Complaint: Abdominal Pain Stated Complaint: BOWEL PROBLEMS Time Seen by Provider: 09/28/20 10:15 Source of Information: Reports: Patient History Limitations: Reports: No Limitations - History of Present Illness INITIAL COMMENTS - FREE TEXT/NARRATIVE: Patient presented to the ED because of abdominal pain, right sided,7/10, cramping. He has been constipated for 3 days and is taking miralax and is able to pass small amount of stool. There is no nausea/vomiting. No cough/cold, fever or chills. Treatments OPHTHALMIC TECHNOLOGIST: Reports: Other (see below) Other Treatments OPHTHALMIC TECHNOLOGIST: many laxative Abdomen Pain Score (Numeric/FACES): 4 - Related Data Allergies Allergy/AdvReac Type Severity Reaction Status Date / Time No Known Allergies Allergy Verified 10/28/17 15:34 Home Meds: Home Meds Calcium Acetate [PhosLo] 667 mg PO TID 10/28/17 [History] Cyclobenzaprine [Flexeril] 10 mg PO TID PRN 10/28/17 [History] Omeprazole Magnesium [Prilosec] 20 mg PO BID 10/28/17 [History] Sevelamer Carbonate [Renvela] 800 mg PO TID 10/28/17 [History] amLODIPine [Norvasc] 5 mg PO BID 10/28/17 [History] carvediloL [Carvedilol] 25 mg PO BID 10/28/17 [History] Insulin Aspart [Novolog] See Protocol SQ TIDAC #60 ml 10/29/17 [Rx] Insulin Degludec [Tresiba Flextouch U-100] 20 unit SQ BEDTIME #36 ml 10/29/17 [Rx] Magnesium Oxide 400 mg PO BID #60 tab 10/29/17 [Rx] Metoclopramide HCl [Reglan] 10 mg PO QIDACANDBED #30 tablet 09/28/20 [Rx] Past Medical History HEENT History: Reports: Other (See Below) Other HEENT History: states that he had a scar tissue damage at his let eye. Cardiovascular History: Reports: Other (See Below) Other Cardiovascular History: essential hypertension; circulatory shock Respiratory History: Reports: Other (See Below) Other Respiratory History: hx of acute respiratory failure. Gastrointestinal History: Reports: Other (See Below) Other Gastrointestinal History: abdominal compartment syndrome, acute upper and lower GI bleeding, necrotizing pancreatitis. Genitourinary History: Reports: Other (See Below) Other Genitourinary History: hx of acute kiddney injury. Musculoskeletal History: Reports: Other (See Below) Other Musculoskeletal History: Sciatica Neurological History: Reports: Concussion, Other (See Below) Other Neuro History: states has had multiple concussions Psychiatric History: Reports: ADHD, Bipolar, Other (See Below) Other Psychiatric History: patient has hx of alcohol dependence, has bipolar I and II mixed and wit rapid cycling. Endocrine/Metabolic History: Reports: Other (See Below) Other Endocrine/Metabolic History: elevated blood sugar, on insulin drip - Infectious Disease History Infectious Disease History: Reports: Chicken Pox - Past Surgical History Male Surgical History: Reports: Circumcision Social & Family History - Family History Family Medical History: No Pertinent Family History - Tobacco Use Tobacco Use Status *Q: Current Every Day Tobacco User Years of Tobacco use: 10 Packs/Tins Daily: 0.5 - Caffeine Use Caffeine Use: Reports: Energy Drinks, Soda - Recreational Drug Use Recreational Drug Use: Yes Recreational Drug Type: Reports: Marijuana/Hashish ED ROS GENERAL - Review of Systems Review Of Systems: See Below Constitutional: Reports: No Symptoms HEENT: Reports: No Symptoms Respiratory: Reports: No Symptoms Cardiovascular: Reports: No Symptoms Endocrine: Reports: No Symptoms GI/Abdominal: Reports: Abdominal Pain : Reports: No Symptoms Musculoskeletal: Reports: No Symptoms Skin: Reports: No Symptoms Neurological: Reports: No Symptoms Psychiatric: Reports: No Symptoms ED EXAM, GI/ABD - Physical Exam Exam: See Below Exam Limited By: No Limitations General Appearance: Alert, No Apparent Distress Ears: Normal External Exam, Normal Canal Throat/Mouth: Normal Inspection, Normal Lips Head: Atraumatic, Normocephalic Neck: Normal Inspection, Supple, Non-Tender Respiratory/Chest: No Respiratory Distress, Lungs Clear, Normal Breath Sounds Cardiovascular: Normal Peripheral Pulses, Regular Rate, Rhythm, No Edema, No Murmur GI/Abdominal Exam: Normal Bowel Sounds, Soft, Other (tenderness over the RLQ and RUQ ) Back Exam: Normal Inspection, Full Range of Motion Extremities: Normal Inspection, Normal Range of Motion, Non-Tender, No Pedal Edema, Normal Capillary Refill Neurological: Alert, Oriented, CN II-XII Intact Course - Vital Signs Text/Narrative:: Lab/CT result was reviewed and discussed with patient NS 1 L bolus Zofran 4 mg IV x1 Morphine 2 mg IV x1 Last Recorded V/S: Last Vital Signs Temp 36.9 C 09/28/20 10:14 Pulse 93 09/28/20 15:00 Resp 18 09/28/20 15:00 BP 129/83 09/28/20 15:00 Pulse Ox 100 09/28/20 15:00 - Orders/Labs/Meds Labs: Laboratory Tests 09/28/20 09/28/20 09/28/20 Range/Units 10:36 12:00 12:00 WBC 8.3 (3.2-10.1) x10-3/uL RBC 5.57 (3.90-5.90) x10(6)uL Hgb 15.7 (12.9-17.7) g/dL Hct 46.9 (38.3-50.1) % MCV 84.1 (80.8-98.7) fL MCH 28.1 (27.0-33.3) pg MCHC 33.4 (28.7-35.3) g/dL RDW 12.4 (12.4-15.0) % Plt Count 220 (117-477) x10(3)uL MPV 8.8 (6.7-11.0) fL Neut % (Auto) 76.0 H (40.3-71.8) % Lymph % (Auto) 11.9 L (15.8-45.3) % Kern % (Auto) 11.0 (5.5-15.2) % Eos % (Auto) 0.9 (0.1-6.8) % Baso % (Auto) 0.2 L (0.3-3.8) % Neut # (Auto) 6.3 (1.7-6.9) x10-3/uL Lymph # (Auto) 1.0 (0.5-4.5) x10-3/uL Kern # (Auto) 0.9 (0.0-1.2) x10-3/uL Eos # (Auto) 0.1 (0.0-0.6) x10-3/uL Baso # (Auto) 0.0 (0.0-0.3) x10-3/uL Sodium 133 L (135-145) mmol/L Potassium 4.2 (3.5-5.3) mmol/L Chloride 95 L D (100-110) mmol/L Carbon Dioxide 23 (21-32) mmol/L BUN 17 (7-18) mg/dL Creatinine 1.0 (0.70-1.30) mg/dL Est Cr Clr Drug Dosing TNP Estimated GFR (MDRD) > 60 (>60) BUN/Creatinine Ratio 17.0 (9-20) Glucose 292 H (80-116) mg/dL POC Glucose 288 H (74-100) mg/dL Calcium 9.2 (8.6-10.2) mg/dL Total Bilirubin 0.9 (0.1-1.3) mg/dL AST 10 D (5-25) IU/L ALT 20 D (12-36) U/L Alkaline Phosphatase 101 (56-112) IU/L Total Protein 7.4 (6.0-8.0) g/dL Albumin 3.1 L (3.5-5.2) g/dL Globulin 4.3 g/dL Albumin/Globulin Ratio 0.7 Amylase 18 L (25-115) U/L Lipase (73-393) U/L Urine Color (YELLOW) Urine Appearance (CLEAR) Urine pH (5.0-6.5) Ur Specific [place] (1.010-1.025) Urine Protein (NEGATIVE) mg/dL Urine Glucose (UA) (NORMAL) mg/dL Urine Ketones (NEGATIVE) mg/dL Urine Occult Blood (NEGATIVE) Urine Nitrite (NEGATIVE) Urine Bilirubin (NEGATIVE) Urine Urobilinogen (NEGATIVE) mg/dL Ur Leukocyte Esterase (NEGATIVE) Urine RBC (0-5) Urine WBC (0-5) Ur Squamous Epith Cells (NS,R,O) Urine Bacteria (NS) Urine Opiates Screen (NEGATIVE) Ur Oxycodone Screen (NEGATIVE) Ur Propoxyphene Screen (NEGATIVE) Ur Barbituates Screen (NEGATIVE) Ur Tricyclics Screen (NEGATIVE) Ur Phencyclidine Scrn (NEGATIVE) Ur Amphetamine Screen (NEGATIVE) Urine MDMA Screen (NEGATIVE) U Benzodiazepines Scrn (NEGATIVE) U Cocaine Metab Screen (NEGATIVE) U Marijuana (THC) Screen (NEGATIVE) 09/28/20 09/28/20 09/28/20 Range/Units 12:00 13:44 13:44 WBC (3.2-10.1) x10-3/uL RBC (3.90-5.90) x10(6)uL Hgb (12.9-17.7) g/dL Hct (38.3-50.1) % MCV (80.8-98.7) fL MCH (27.0-33.3) pg MCHC (28.7-35.3) g/dL RDW (12.4-15.0) % Plt Count (117-477) x10(3)uL MPV (6.7-11.0) fL Neut % (Auto) (40.3-71.8) % Lymph % (Auto) (15.8-45.3) % Kern % (Auto) (5.5-15.2) % Eos % (Auto) (0.1-6.8) % Baso % (Auto) (0.3-3.8) % Neut # (Auto) (1.7-6.9) x10-3/uL Lymph # (Auto) (0.5-4.5) x10-3/uL Kern # (Auto) (0.0-1.2) x10-3/uL Eos # (Auto) (0.0-0.6) x10-3/uL Baso # (Auto) (0.0-0.3) x10-3/uL Sodium (135-145) mmol/L Potassium (3.5-5.3) mmol/L Chloride (100-110) mmol/L Carbon Dioxide (21-32) mmol/L BUN (7-18) mg/dL Creatinine (0.70-1.30) mg/dL Est Cr Clr Drug Dosing Estimated GFR (MDRD) (>60) BUN/Creatinine Ratio (9-20) Glucose (80-116) mg/dL POC Glucose (74-100) mg/dL Calcium (8.6-10.2) mg/dL Total Bilirubin (0.1-1.3) mg/dL AST (5-25) IU/L ALT (12-36) U/L Alkaline Phosphatase (56-112) IU/L Total Protein (6.0-8.0) g/dL Albumin (3.5-5.2) g/dL Globulin g/dL Albumin/Globulin Ratio Amylase (25-115) U/L Lipase 29 L (73-393) U/L Urine Color Yellow (YELLOW) Urine Appearance Clear (CLEAR) Urine pH 6.0 (5.0-6.5) Ur Specific [place] 1.030 H (1.010-1.025) Urine Protein 30 H (NEGATIVE) mg/dL Urine Glucose (UA) 100 H (NORMAL) mg/dL Urine Ketones 15 H (NEGATIVE) mg/dL Urine Occult Blood Negative (NEGATIVE) Urine Nitrite Positive H (NEGATIVE) Urine Bilirubin Negative (NEGATIVE) Urine Urobilinogen Normal (NEGATIVE) mg/dL Ur Leukocyte Esterase Moderate H (NEGATIVE) Urine RBC Not seen (0-5) Urine WBC 0-5 (0-5) Ur Squamous Epith Cells Not seen (NS,R,O) Urine Bacteria Rare H (NS) Urine Opiates Screen Positive H (NEGATIVE) Ur Oxycodone Screen Negative (NEGATIVE) Ur Propoxyphene Screen Negative (NEGATIVE) Ur Barbituates Screen Negative (NEGATIVE) Ur Tricyclics Screen Negative (NEGATIVE) Ur Phencyclidine Scrn Negative (NEGATIVE) Ur Amphetamine Screen Negative (NEGATIVE) Urine MDMA Screen Negative (NEGATIVE) U Benzodiazepines Scrn Negative (NEGATIVE) U Cocaine Metab Screen Negative (NEGATIVE) U Marijuana (THC) Screen Positive H (NEGATIVE) Meds: Medications Discontinued Medications Generic Name Dose Route Start Last Admin Trade Name Freq PRN Reason Stop Dose Admin Sodium Chloride 1,000 mls @ 999 mls/hr 09/28/20 12:00 09/28/20 12:12 Normal Saline IV 999 mls/hr ASDIRECTED JOÃO Administration Iopamidol 100 ml 09/28/20 12:44 09/28/20 12:59 Iopamidol 755 Mg/Ml 100 Ml Bottle IV 09/28/20 12:45 100 ml . DIRECTED ONE Administration Morphine Sulfate 2 mg 09/28/20 11:48 09/28/20 12:13 Morphine 2 Mg/Ml Syringe IVPUSH 09/28/20 11:49 2 mg ONETIME ONE Administration Ondansetron HCl 4 mg 09/28/20 11:48 09/28/20 12:13 Ondansetron 4 Mg/2 Ml Sdv IVPUSH 09/28/20 11:49 4 mg NOW STA Administration Sodium Chloride 10 ml 09/28/20 11:47 Sodium Chloride 0.9% 10 Ml Syringe FLUSH ASDIRECTED PRN Keep Vein Open Departure - Departure Time of Disposition: 14:40 Disposition: Home, Self-Care 01 Condition: Good Clinical Impression: Ileus, Constipation - Discharge Information Prescriptions: Metoclopramide HCl [Reglan] 10 mg PO QIDACANDBED #30 tablet Instructions: Ileus, Constipation, Adult Referrals: Nancy Wise MD [Primary Care Provider] - Forms: ED Department Discharge Additional Instructions: Please read discharge instructions on ileus and constipation Increase oral fluids Continue miralax daily Reglan 10 mg before each meal and at bed time . Quit taking it when everything is normal-regular and normal bowel movement Follow up as needed Sepsis Event Note (ED) - Evaluation Sepsis Screening Result: No Definite Risk
--- NOTE | 2020-09-28 15:39 | CT ---
INDICATION: Right upper and right lower quadrant pain. CT ABDOMEN AND PELVIS WITH CONTRAST: Spiral 3.75 mm axial sections were obtained through the abdomen and pelvis with 100 mL Isovue-370 at 2 mL/second with sagittal and coronal reconstructions 09/28/20 and compared with 02/25/18. Total exam DLP was 434.33 mGy-cm. The lower lung reid and pleural spaces visualized reveal evidence of infiltrate and possibly some atelectasis, compatible with pneumonia and atelectasis in the left lower lobe at the left lung base with some relatively minimal similar changes at the right lower lobe - posteriorly. No significant pleural reaction was noted. The heart appeared normal in size. No pericardial effusion was seen. The liver had a normal appearance. The gallbladder was distended, measuring almost 10 cm in maximum diameter, which may be on the basis of NPO status - correlate clinically. The adrenal glands were unremarkable. Small and tiny cysts are noted in the kidneys. The largest is in the lower pole of the left kidney cortex extending into the medulla minimally, measuring approximately 2.5 cm. Spleen has normal appearance. The pancreas was not well seen and may be very diminutive in size, especially with history of partial pancreatectomy. No intrahepatic ductal dilatation was identified. No definite retroperitoneal mass was seen. There is some suspicion of thickening of the wall of the ascending colon and also loops of distal small bowel - probably ileum in the right lower quadrant - mid to lower pelvis. The bowel loops appear to be either adherent to one another or without intermediary fat. Inflammatory process, possibly infection, would be considerations. Fluid-filled loops of bowel with air-fluid levels and some dilatation are noted, suggesting a degree of obstruction and/or adynamic ileus. No additional organomegaly, mass lesions or gross free fluid collections were identified. The urinary bladder appears somewhat distended. IMPRESSION: 1. Abnormal bowel loops which appear to be ascending colon and distal small bowel for the most part, although a fairly large number of fluid-filled loops of small bowel that are distended, some with air-fluid levels are noted, raising question of either paralytic ileus or a partially obstructive process at the level of the ascending colon. Additional workup may be warranted. 2. Somewhat distended-appearing gallbladder, but may be on the basis of NPO status, correlate clinically. 3. Minimal cystic changes appear fairly stable in the kidneys. The largest is in the lower of the left kidney measuring approximately 2.5 cm. 4. The pancreas was not well seen. Report was called to Dr. Ferrer at 1320 hours 09/28/20. [facility]
== END 2020-09-28 15:05 | disposition home or self-care (01) ==
LOC: FB.ED 09:48
DX: K59.00 Constipation, unspecified (principal); K56.7 Ileus, unspecified; I10 Essential (primary) hypertension; Z72.0 Tobacco use; Z79.899 Other long term (current) drug therapy
CPT/HCPCS: 36415; 74177; 80053; 80305; 81001; 82150; 82962; 83690; 85025; 96374; 96375; 99284; J2270; J2405; J7030; Q9967